=== PATIENT | female | born 1995 | race Caucasian/White ===

== ENCOUNTER 2017-08-21 09:22 | Emergency (ER) | payer BC ==
[~2017-08-21] VITALS: Ht 162.6 cm; Wt 81.5 kg
[2017-08-21 10:16] LABS: INFLUENZA TYPE B NEGATIVE FOR TYPE B (NEGATIVE)
[2017-08-21] MEDS ORDERED: ACETAMINOPHEN 500 MG TABLET PO ONE (10:30)
[2017-08-21] MEDS ORDERED: OSELTAMIVIR PHOSPHATE 75 MG CAPSULE PO ONE (10:30)
[2017-08-21 11:32] VITALS: BP 127/89
== END 2017-08-21 11:51 | disposition home or self-care (01) ==
LOC: EMS 09:27
DX: J09.X2 Influenza due to identified novel influenza A virus with other respiratory manifestations (principal)
CPT/HCPCS: 87804; 99284